=== PATIENT | male | born 1980 | race Caucasian/White ===

== ENCOUNTER 2017-04-06 20:46 | Emergency (ER) | payer SELFPAY ==
[~2017-04-06] VITALS: Ht 182.9 cm; Wt 80.0 kg
[~2017-04-06 20:46] MED LIST: IBUP600 PO; LORTA5 PO
[2017-04-06 21:29] VITALS: BP 131/82; PULSE 64; RESP 18; TEMP 98; O2SAT 99
[2017-04-06] MEDS: LIDOCAINE HCL 1% 50 ML VIAL INFIL ONE ×2 (21:58→21:59)
[2017-04-06] MEDS ORDERED: CEPH-460 PO (22:47)
--- NOTE | 2017-04-06 22:49 | PD ---
HPI Chief Complaint: Laceration/Skin Injury Time Seen by Provider: 21:42 Travel History International Travel<30 days: No Contact w/Intl Traveler<30days: No Traveled to known affect area: No History of Present Illness HPI 37-year-old male here for a laceration to his left forearm that occurred at 10 AM this morning. Patient said he was working with a knife and accidentally cut his forearm. He rinsed the wound, wrapped it up and went to work today without issue. He denies motor, sensory, nerve changes. Patient is right-handed and works in construction. He denies fever, chills, chest pain, shortness of breath. Denies any other medical history. PFSH Past Medical History Diminished Hearing: No Past Surgical History Other Surgery: Yes (WISDOM TEETH EXTRACTION) Social History Alcohol Use: No (OCCASIONALLY) Tobacco Use: Yes (3/4 PPD) Substance Use: No Allergies-Medications (Allergen,Severity, Reaction): Coded Allergies: No Known Allergies (Verified , 04/06/17) Reported Meds & Prescriptions Reported Meds & Active Scripts Active Keflex (Cephalexin) 500 Mg Capsule 500 Mg PO TID 10 Days Review of Systems Except as stated in HPI: all other systems reviewed are Neg Physical Exam Narrative GENERAL: Well-nourished, well-developed patient. SKIN: Focused skin assessment warm/dry. 3 cm linear clean laceration to the medial aspect of left forearm. Adipose tissue exposed. Unable to visualize tendons or musculature. HEAD: Normocephalic. EYES: No scleral icterus. No injection or drainage. NECK: Supple, trachea midline. No JVD or lymphadenopathy. CARDIOVASCULAR: Regular rate and rhythm without murmurs, gallops, or rubs. RESPIRATORY: Breath sounds equal bilaterally. No accessory muscle use. GASTROINTESTINAL: Abdomen soft, non-tender, nondistended. MUSCULOSKELETAL: No cyanosis, or edema. No muscular weakness in upper extremities. NEUROLOGICAL: Awake and alert. Motor and sensory grossly within normal limits. Five out of 5 muscle strength upper extremities. Normal speech. Data Data Last Documented VS Vital Signs Date Time Temp Pulse Resp B/P (MAP) Pulse Ox O2 Delivery O2 Flow Rate FiO2 04/06/17 21:29 98.0 64 18 131/82 (98) 99 Orders Orders Lidocaine 1% Inj (50 Ml) (Xylocaine 1% I (04/06/17 22:00) [facility] Medical Decision Making Medical Screen Exam Complete: Yes Emergency Medical Condition: Yes Differential Diagnosis Left forearm laceration versus avulsion versus abrasion Narrative Course 37-year-old male here for a laceration to his left forearm that occurred at 10 AM this morning. Patient said he was working with a knife and accidentally cut his forearm. He rinsed the wound, wrapped it up and went to work today without issue. He denies motor, sensory, nerve changes. Patient is right-handed. He denies fever, chills, chest pain, shortness of breath. Denies any other medical history. Pulse motor sensory intact. No evidence of tendon laceration or involvement. Laceration repair and see laceration note. Patient advised on proper treatment of wound. Return to his primary care physician or ED for removal in 10 days. He has had a tetanus shot within the last 5 years. Keflex for prophylaxis. Procedures Procedure Narrative LACERATION LOCATION: Left medial aspect of forearm. LENGTH: 3 cm NUMBER OF STITCHES/MARIANN: 7 REPAIR: The area of the laceration was prepped with Betadine and sterilely draped. The laceration was infiltrated with 3 cc Lidocaine 1%. The wound was copiously irrigated and explored without evidence of foreign body, tendon injury or neurovascular injury. The wound was closed using 5-0 Prolene. This was a single layer repair. A sterile dressing was applied. The patient was advised to keep the dressing clean and dry. Patient tolerated the procedure well. Diagnosis Primary Impression: Laceration of forearm Qualified Codes: S51.812A - Laceration without foreign body of left forearm, initial encounter Referrals: Primary Care Physician Additional Instructions: Keep wound clean and dry. If wound becomes or painful, red, and starts to develop pus returned here primary care physician or emergency department for treatment Take antibiotics as prescribed. Scripts Cephalexin (Keflex) 500 Mg Capsule 500 MG PO TID for Infection for 10 Days, CAP 0 Refills Prov: Perri Guevara 04/06/17 Disposition: 01 DISCHARGE HOME Condition: Stable Perri Guevara Apr 06, 2017 22:49
== END 2017-04-06 22:58 | disposition home or self-care (01) ==
LOC: PHEFT 20:46
DX: S51.812A Laceration without foreign body of left forearm, initial encounter (principal); W26.0XXA Contact with knife, initial encounter
CPT/HCPCS: 12002

== ENCOUNTER 2017-04-23 15:38 | Emergency (ER) | payer SELFPAY ==
[~2017-04-23] VITALS: Ht 182.9 cm; Wt 82.0 kg
[~2017-04-23 15:38] MED LIST changes: +CEPH-460 PO; -IBUP600 PO; -LORTA5 PO
[2017-04-23 15:41] VITALS: BP 131/63; PULSE 83; RESP 16; TEMP 98.2; O2SAT 97
--- NOTE | 2017-04-23 16:11 | PD ---
HPI Chief Complaint: Wound/Suture/Staple Re-Check Time Seen by Provider: 15:58 Travel History International Travel<30 days: No Contact w/Intl Traveler<30days: No Traveled to known affect area: No History of Present Illness HPI 37-year-old male presents emergency department for suture removal over left forearm. States he has been caring for the wound with light cleansing, bandaids and covering the wound at work. Denies fever/ chills, chest pain, shortness of breath. PFSH Past Medical History Diminished Hearing: No Tetanus Vaccination: < 5 Years Past Surgical History Other Surgery: Yes (WISDOM TEETH EXTRACTION) Social History Alcohol Use: No (OCCASIONALLY) Tobacco Use: Yes (3/4 PPD) Substance Use: No Allergies-Medications (Allergen,Severity, Reaction): Coded Allergies: No Known Allergies (Verified , 04/23/17) Reported Meds & Prescriptions Reported Meds & Active Scripts Active Keflex (Cephalexin) 500 Mg Capsule 500 Mg PO TID 10 Days Review of Systems Except as stated in HPI: all other systems reviewed are Neg Physical Exam Narrative GENERAL: Well-developed well-nourished SKIN: Focused skin assessment warm/dry. Left forearm with [address], mild erythema without exudate or erythema. well-healing HEAD: Atraumatic. Normocephalic. EYES: Pupils equal and round. No scleral icterus. No injection or drainage. ENT: No nasal bleeding or discharge. Mucous membranes pink and moist. NECK: Trachea midline. No JVD. MUSCULOSKELETAL: No obvious deformities. No clubbing. No cyanosis. No edema. NEUROLOGICAL: Awake and alert. No obvious cranial nerve deficits. Motor grossly within normal limits. Normal speech. PSYCHIATRIC: Appropriate mood and affect; insight and judgment normal. Data Data Last Documented VS Vital Signs Date Time Temp Pulse Resp B/P (MAP) Pulse Ox O2 Delivery O2 Flow Rate FiO2 04/23/17 15:41 98.2 83 16 131/63 (85) 97 Orders Orders Ed Discharge Order (04/23/17 16:11) MDM Medical Decision Making Medical Screen Exam Complete: Yes Emergency Medical Condition: Yes Differential Diagnosis Suture removal vs cellilitis vs erysipelas Narrative Course 37y/ male presents for suture removal. States he has been taking care of his wound and denies pain, swelling, or erythema. Suture removal today without dehiscence of wound. 7 sutures removed. Advised to follow up with PCP for further treatment. Advised to avoid prolonged immersion for another 3-4 days, until wound well healed. Diagnosis Primary Impression: Encounter for removal of sutures Referrals: Primary Care Physician Additional Instructions: Keep area clean and dry. May shower without bandages over the site. Avoid prolonged submersion for another 2-3 days until site healed completely. Return to the ED if site becomes infected. Disposition: 01 DISCHARGE HOME Condition: Stable Perri Guevara Apr 23, 2017 16:11
== END 2017-04-23 16:15 | disposition home or self-care (01) ==
LOC: PHEFT 15:38
DX: Z48.02 Encounter for removal of sutures (principal)
CPT/HCPCS: 99281